=== PATIENT | female | born 1955 | race Asian ===

== ENCOUNTER 2020-05-02 10:29 | Day surgery (SDC) | payer OTHER ==
[2020-05-01 11:47] LABS: COVID AG,FIA SOURCE NASOPHARYNGEAL
[~2020-05-02] VITALS: Ht 152.4 cm; Wt 68.0 kg
[~2020-05-02 10:29] MED LIST: SODIUM CHLORIDE 0.9% 1,000 ML ONE
[2020-05-02] MEDS ORDERED: LIDOCAINE/PF 2% 5 ML VIAL IM ONE (10:30)
[2020-05-02] MEDS ORDERED: PROPOFOL 1% 20 ML VIAL IVP ONE (10:30)
[2020-05-02] MEDS ORDERED: SODIUM CHLORIDE 0.9% 1,000 ML IV ONE (11:00)
[2020-05-02] MEDS ORDERED: DOCU-275 PO (11:09)
[2020-05-02] MEDS ORDERED: OMEP20 PO (11:10)
[2020-05-02] MEDS ORDERED: MECL-98 PO (11:10)
[2020-05-02] MEDS ORDERED: BISM262T14 PO (11:10)
[2020-05-02] MEDS ORDERED: METR500 PO (11:10)
[2020-05-02] MEDS ORDERED: DOXY100C40 PO (11:10)
== END 2020-05-02 13:45 | disposition home or self-care (01) ==
LOC: SURGERY 10:29
PROVIDERS: ATTEND Internal Medicine Gastroenterology
DX: E78.00 Pure hypercholesterolemia, unspecified (principal); K29.50 Unspecified chronic gastritis without bleeding; M19.90 Unspecified osteoarthritis, unspecified site; D64.9 Anemia, unspecified; Z90.710 Acquired absence of both cervix and uterus; Z79.899 Other long term (current) drug therapy; Z20.828 Contact with and (suspected) exposure to other viral communicable diseases
CPT/HCPCS: 43239; 87426; 88305; 88312; 88313; C1769; C9803; J2704; J3490; J7030